=== PATIENT | male | born 1970 | race Two or more races ===

== ENCOUNTER 2021-08-17 10:02 | Emergency (ER) | payer MEDICAID ==
[~2021-08-17] VITALS: Ht 172.7 cm; Wt 82.6 kg
--- NOTE | 2021-08-17 10:15 | NUR ---
pt 51 yrs male came from home c/o RT shoulder pain 03/14 for 3 month here for abnormal MRIdone dineses sob seen by ANDREW castillo with pt about plan of care
--- NOTE | 2021-08-17 11:00 | NUR ---
c xray done at bed side
[2021-08-17] MEDS ORDERED: HYDROCODONE/APAP 5-325MG TABLET PO ONE (11:15)
[2021-08-17] MEDS ORDERED: HYDROCODONE/APAP 5-325MG TABLET ONE (11:28)
[2021-08-17 12:20] VITALS: BP 136/87
--- NOTE | 2021-08-17 12:21 | NUR ---
pt respondede to norco 5/325mg po given pain readuced to 11/14 de/c instraction given to pt and fallow up care geven to pt fully and verblized understood
== END 2021-08-17 12:23 | disposition home or self-care (01) ==
LOC: ER 10:08
DX: G89.29 Other chronic pain (principal); M25.511 Pain in right shoulder
CPT/HCPCS: 73030; A4663